=== PATIENT | male | born 2005 | race Asian ===

== ENCOUNTER 2024-11-29 12:43 | Emergency (ER) | payer BC, SELFPAY ==
[2024-11-29 12:44] VITALS: BP 143/71; PULSE 71; RESP 16; TEMP 36.8; O2SAT 99; BMI 29.1
--- NOTE | 2024-11-29 13:09 | US_ITS ---
PROCEDURE: TESTICULAR WITH ARTERIAL FLOW 11/29/2024 REASON FOR EXAM: RIGHT TESTICLE PAIN. TECHNIQUE: Procedure Code: USTES Modality: US Procedure: TESTICULAR WITH ARTERIAL FLOW COMPARISON: None FINDINGS: RIGHT testicle: 4.3 x 2.9 x 2.2 Scattered hypoechoic regions throughout the testicle. Right epididymis: Normal. Epididymis measures 1.0 x 0.8 x 1.0 cm. Hyperemic. No hydrocele or varicocele. LEFT testicle: 3.2 x 2.8 x 1.7 Normal echogenicity. Left epididymis: Normal. Epididymis measures 1.0 x 1.2 x 0.9 cm. Normal vascularity. No hydrocele or varicocele. Other findings: No hydrocele or large varicocele. US/Testicular with Arterial Flow IMPRESSION: 1. Right testicular hyperemia and scattered hypoechoic regions within a nonenla rged testicle. The findings are nonspecific and may reflect inflammation/orchitis, or intermittent torsion/detorsion. 2. Left testicle is unremarkable. Reading Location: [id number]
[2024-11-29 13:38] LABS: Mucous, Urine 0 SEEN /hpf (<or=2+); Squamous Epithelial Cells - UA 0 SEEN /hpf (0-5)
--- NOTE | 2024-11-29 13:39 | EX.ED.GUMALE ---
HPI History of Present Illness Chief Complaint: Male Pain/Injury Informant: patient Pain Onset: Today and Yesterday Context: Gradual Onset Timing: Continuous Current Severity: Mild Maximum Severity: Mild Narrative Narrative: 19-year-old male complaining of atraumatic right testicle pain mild swelling. Began last night. Denies any dysuria. No fever. Denies any type of trauma. Denies any type of discharge or STD. No prior history. Denies any fever or chills. No abdominal pain. Prior similar symptoms: No Recent Illness/Hospitalization: No PFSH PFSH Medical History no medical history no medical history Home Medications ?Medication ?Instructions ?Recorded ?Last Taken ?Type doxycycline hyclate 100 mg capsule 100 mg PO BID 14 days #28 caps 11/29/24 Unknown Rx Allergy/AdvReac Type Severity Reaction Status Date / Time No Known Allergies Allergy Verified 11/29/24 12:44 Social History Smoking Status: Never smoker ROS ROS ED ROS Narrative Denies any recent illness. Constitutional Constitutional ED: Denies chills or fever(s) Eyes Eyes: Denies blurry vision ENT ENT ED: Denies ear pain Cardiovascular Cardiovascular: Denies chest pain Respiratory/Chest Respiratory/Chest: Denies cough or dyspnea Gastrointestinal Gastrointestinal: Denies abdominal pain Genitourinary Genitourinary ED: Denies dysuria or hematuria Musculoskeletal Musculoskeletal: Denies arthralgias Integumentary Denies abscess Neurologic Neurologic: Denies headache(s) Psychiatric Psychiatric: Denies anxiety or depression Endocrine Endocrinology: Denies polydipsia or polyphagia Hematologic/Lymphatic Hematologic/Lymphatic: Denies easy bleeding, easy bruising or lymphadenopathy Allergic/Immunologic Allergic/Immunologic ED: Denies mouth swelling, tongue swelling or urticaria EXAM Physical Exam Narrative Exam Narrative: 19-year-old male sitting upright in bed no acute distress. Vital signs stable afebrile. H EENT exam pupils round react light. Motions are intact. Moist mucous membranes. Neck nontender. Back nontender. Lungs clear equal symmetrical bilaterally. Heart regular rhythm rate about 70 no murmur. Chest wall ribs nontender. Abdomen soft nontender. No hernia or mass. No distention. External exam right testicle is in normal position. He has mild tenderness. There is minimal swelling. No redness to his scrotum. Left testicle is nontender. I do not appreciate a mass no obvious hernia. He is uncircumcised. There is no inguinal lymphadenopathy. No discharge. No ulcerations or changes in the skin. Moving all 4 extremities. Normal range of motion. Nontender no edema. Neurologically is awake alert. Const Vital Signs: 11/29/24 12:44 Temperature 98.2 F Temperature Source Oral Pulse Rate 71 Respiratory Rate 16 Blood Pressure 143/71 H Blood Pressure Mean 95 Pulse Ox 99 Oxygen Delivery Method Room Air Positive well nourished and well developed; Negative for obese, cachectic, contractures or unkempt General Appearance ED: well developed and NAD; Negative for unkempt, cachectic, contractures or pallor Nutritional Appearance: Negative for cachectic or obese HEENT Reports moist mucous membranes normocephalic and atraumatic Eyes PERRL and EOMs intact bilaterally Neck no lymphadenopathy, supple and no JVD Resp normal respiratory effort and clear to auscultation bilaterally Cardio regular rate, regular rhythm, S1 normal heart sound, S2 normal heart sound and no murmurs GI non-tender, non-distended and no masses GI Narrative: Mild right testicular tenderness. Minimal swelling. No redness of the scrotum. No abscess. Left testicle nontender. Both are in good position. No signs of torsion. There is no inguinal lymphadenopathy. He is uncircumcised. There is no discharge. There is no ulcerations. Auscultation: normoactive bowel sounds Palpation: soft; Negative for tender or guarding no CVA tenderness Back/Spine no CVA tenderness Extremity normal to inspection General Extremety ED: Negative for edema, pulses abnormal or tenderness General Extremity: Negative for edema or pulses abnormal Neuro oriented x3, CN's II-XII intact bilaterally, moves all extremities and no focal motor deficits Sensorium / Orientation: alert, oriented to person, oriented to place and oriented to time Motor Exam: strength 5/5 throughout Psych mental status grossly normal Appearance: Negative for unkempt Thought Process: normal thought process Thought Content: normal thought content Skin General Skin Exam: Negative for jaundice or pallor Lesions: no lesions Rashes: no rashes MDM MDM MDM Narrative Medical decision making narrative: 19-year-old male has right testicular pain may have orchitis. UA and testicular ultrasound being obtained. Clinically does not seem to be a torsion. There is no mass or hernia either. There is no signs of scrotal cellulitis or abscess. Repeat send patient is doing well at 3 PM. We discussed his test results. He be treated as orchitis. Given his age and he is sexually active he will be placed on doxycycline 100 twice daily for 2 weeks. 28 no refill. Follow-up with urology if not improving or return if worse. He is comfortable with the plan. History & Record Review Discussion w/independent historian: Patient Lab Data Attestation: I reviewed the patient's lab results. Lab results narrative: UA normal. No white or red cells. No nitrates. Ultrasound shows most likely orchitis of the testicle. No torsion. Labs: Laboratory Results - last 24 hr 11/29/24 13:35 Urine Color Yellow Urine Clarity Clear Urine pH 6.5 Ur Specific [place] 1.015 Urine Protein 15 H Urine Glucose (UA) Normal Urine Ketones Negative Urine Occult Blood Negative Urine Nitrite Negative Urine Bilirubin Negative Urine Urobilinogen Normal Ur Leukocyte Esterase Negative Urine RBC 0-5 SEEN Urine WBC 0-5 SEEN Ur Squamous Epith Cells 0 SEEN Urine Bacteria 0 SEEN Urine Mucus 0 SEEN Radiography Diagnostic Testing: Clinical Impression(s) from Imaging Studies Testicular Ultrasound 11/29/24 13:09 IMPRESSION: 1. Right testicular hyperemia and scattered hypoechoic regions within a nonenlarged testicle. The findings are nonspecific and may reflect inflammation/orchitis, or intermittent torsion/detorsion. 2. Left testicle is unremarkable. Reading Location: [facility] Discharge Plan Triage Chief Complaint: Male Pain/Injury ED Provider: Juanito Nice Dx/Rx/DC Orders Clinical Impression: Orchitis Instructions: ED Orchitis Prescriptions: New doxycycline hyclate 100 mg capsule 100 mg PO BID 14 Days Qty: 28 0RF Primary Care Provider: Care Physician,No Primary Referrals: Luis Jacob MD [Med Staff - Active Staff] - 1 Week if not improving Town Doctor,Out of [Non-Staff] - Activity Restrictions/Additional Instructions: Inflammation and most likely infection of your testicle. Motrin Tylenol for pain. Supportive underwear. The antibiotic doxycycline 1 pill twice a day for 2 weeks. This should progressively get better if not return or follow-up with the urologist. Print Language: Ecu[place] Disposition Disposition: Home, Self Care
[2024-11-29 13:42] LABS: Color, Urine Yellow (Yellow); Glucose, Dipstick Normal (Normal); Ketone-Dipstick Negative (Negative); Leukocyte Esterase-Dipstick Negative /ul (Negative); Nitrite-Dipstick Negative (Negative); Occult Blood-Urine Negative /ul (Negative); Protein-Dipstick 15 mg/dl (Negative); Specific Gravity, Urine 1.015 (1.002-1.030); Urine Bilirubin Dipstick Negative (Negative)
[2024-11-29 13:55] LABS: Red Blood Cells-Urine 0-5 SEEN /hpf (0-5)
--- NOTE | 2024-11-29 14:23 | CM.ED ---
Social Work Date of referral: 11/29/24 Reason for referral: Primary Care Physician (PCP) not on file. Patient provided consent for Social Work visit. There was another adult male in the room that appeared to be close to same age as patient. Patient confirmed that he is not connected with a primary care physician and declined a handout for the [facility] however made a note on his phone. Tool Grinder Operator also provided education about how patient can secure one through his insurance which patient verbalized he understood. Thu Garcia, CEMENT CRUSHER OPERATOR, TECHNICIAN [employer]
[2024-11-29 15:20] VITALS: BP 114/70; PULSE 58; RESP 16; TEMP 36.6; O2SAT 100
== END 2024-11-29 15:20 | disposition home or self-care (01) ==
PROVIDERS: Emergency Provider Emergency Medicine; Visit Provider Emergency Medicine
DX: N50.811 Right testicular pain (principal); N45.2 Orchitis
CPT/HCPCS: 76870; 81001; 93976; 99282